=== PATIENT | male | born 1975 | race African-American/Black ===

== ENCOUNTER 2020-01-28 19:59 | Emergency (ER) | payer SELFPAY ==
[~2020-01-28] VITALS: Ht 175.3 cm; Wt 73.0 kg
[2020-01-28] MEDS ORDERED: IBUPROFEN 600MG TABLET PO ONE (20:45)
[2020-01-28 21:08] VITALS: BP 125/75
== END 2020-01-28 21:08 | disposition home or self-care (01) ==
LOC: ER 19:59
DX: S60.222A Contusion of left hand, initial encounter (principal); S60.221A Contusion of right hand, initial encounter; V49.88XA Car occupant (driver) (passenger) injured in other specified transport accidents, initial encounter; Y93.89 Activity, other specified; Y92.89 Other specified places as the place of occurrence of the external cause; Y99.8 Other external cause status
CPT/HCPCS: 29130; 73130; 99283